=== PATIENT | male | born 1985 | race Two or more races ===

== ENCOUNTER 2020-07-17 16:07 | Emergency (ER) | payer OTHER | END 2020-07-17 20:08 | disposition home or self-care (01) | LOC: EDBD 16:07 → ER1 16:07 | DX: U07.1 COVID-19 (principal); F17.210 Nicotine dependence, cigarettes, uncomplicated; J02.9 Acute pharyngitis, unspecified | CPT/HCPCS: 0240U; 71045; 87081; 87880; 99283 ==